=== PATIENT | female | born 1990 | race Two or more races ===

== ENCOUNTER 2020-01-15 18:59 | Emergency (ER) | payer MEDICAID ==
[~2020-01-15] VITALS: Ht 157.5 cm; Wt 91.0 kg
[2020-01-15 22:54] LABS: CLARITY URINE CLEAR (CLEAR); COLOR URINE YELLOW (YELLOW); KETONES URINE NEGATIVE (NEGATIVE); LEUKOCYTE ESTERASE URINE NEGATIVE (NEGATIVE); NITRITE URINE NEGATIVE (NEGATIVE); OCCULT BLOOD URINE NEGATIVE (NEGATIVE); PROTEIN URINE NEGATIVE (NEGATIVE); UROBILINOGEN URINE 0.2 E.U./dL (0.2-1.0)
[2020-01-15 22:57] LABS: BASOPHILS % 0.8 % (0.0-2.0); EOSINOPHILS % 1.8 % (0.0-5.0); HEMATOCRIT. 36.2 % (36.0-48.0); HEMOGLOBIN. 12.4 g/dL (12.0-16.0); LYMPHOCYTES % 29.5 % (20.0-50.0); MEAN CORPUSCULAR HEMOGLOBIN 29.2 pg (28.0-32.0); MEAN CORPUSCULAR VOLUME 85.6 fL (81.0-99.0); MEAN PLATELET VOLUME 8.6 fl (7.4-10.4); MONOCYTES % 5.9 % (2.0-8.0); PLATELET 258 x1000/uL (130-400); RED BLOOD CELL COUNT 4.23 mill/uL (4.2-5.4); RED CELL DISTRIBUTION WIDTH 13.6 % (11.6-14.6)
[2020-01-15 22:58] LABS: CHLORIDE 107 mEq/L (98-107)
[2020-01-15 23:03] LABS: ETHANOL BLOOD < 10 mg/dL
[2020-01-15 23:09] LABS: *AMPHETAMINES SCREEN URINE NEGATIVE (NEGATIVE); *BARBITURATES SCREEN URINE NEGATIVE (NEGATIVE)
[2020-01-15 23:10] LABS: *BENZODIAZEPINES SCREEN URINE NEGATIVE (NEGATIVE); *COCAINE SCREEN URINE NEGATIVE (NEGATIVE); CANNABINOID URINE SCREEN NEGATIVE (NEGATIVE); METHADONE URINE SCREEN NEGATIVE (NEGATIVE); OPIATES URINE SCREEN NEGATIVE (NEGATIVE); PHENCYCLIDINE URINE SCREEN NEGATIVE (NEGATIVE)
[2020-01-15 23:13] LABS: HCG SCREEN NEGATIVE
[2020-01-16] MEDS: SERTRALINE HCL 50MG TABLET PO SCH ×2 (09:45→19:04)
[2020-01-17] MEDS ORDERED: DIPHENOXYLATE/ATROPINE 2.5/0.025MG TABLET PO ONE (09:45)
[2020-01-17] MEDS: SERTRALINE HCL 50MG TABLET PO SCH (18:32)
[2020-01-18] MEDS: SERTRALINE HCL 50MG TABLET PO SCH (09:00)
[2020-01-18 09:28] VITALS: BP 151/80
== END 2020-01-18 09:40 ==
LOC: ER 18:59
DX: Z03.818 Encounter for observation for suspected exposure to other biological agents ruled out (principal); T39.1X2A Poisoning by 4-Aminophenol derivatives, intentional self-harm, initial encounter; R45.851 Suicidal ideations; I49.9 Cardiac arrhythmia, unspecified; Z91.018 Allergy to other foods; Y92.89 Other specified places as the place of occurrence of the external cause
CPT/HCPCS: 36415; 80053; 80305; 80307; 80320; 80329; 81003; 81025; 84703; 85025; 93005; 99285; C9803; U0003; G0480